=== PATIENT | female | born 1995 | race Two or more races ===

== ENCOUNTER 2021-06-23 21:01 | Emergency (ER) | payer OTHER ==
[~2021-06-23] VITALS: Ht 162.6 cm; Wt 86.2 kg
== END 2021-06-24 00:32 | disposition home or self-care (01) ==
LOC: ER 21:01
DX: S49.92XA Unspecified injury of left shoulder and upper arm, initial encounter (principal); M62.838 Other muscle spasm; Z88.2 Allergy status to sulfonamides